=== PATIENT | male | born 1960 | race Caucasian/White ===

== ENCOUNTER 2018-01-17 18:57 | Emergency (ER) | payer SELFPAY ==
[~2018-01-17] VITALS: Ht 167.6 cm; Wt 82.6 kg
[2018-01-17 19:10] VITALS: BP 166/95
--- NOTE | 2018-01-17 19:15 | NUR ---
PT WC'D TO BED 6
--- NOTE | 2018-01-17 19:27 | NUR ---
PT C/O R KNEE PAIN X2 DAYS. PT REPORTS DRAINING OF R KNEE ON WED 01/15/18, BUT STILL REPORTS SWELLING AND PAIN. WAS GIVEN NORCO, CIPRO AND KEFLEX RX. PMH---HTN NKA
--- NOTE | 2018-01-17 19:52 | NUR ---
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
--- NOTE | 2018-01-17 19:55 | NUR ---
XRAY AT BEDSIDE
--- NOTE | 2018-01-17 20:01 | NUR ---
Dr. Velazquez evaluating patient at bedside.
[2018-01-17] MEDS ORDERED: LIDOCAINE/EPI 2% 1:100000 20 ML VIAL INJ ONE ×2 (20:10→20:19)
--- NOTE | 2018-01-17 20:51 | NUR ---
Dr. Velazquez at bedside for procedure.
--- NOTE | 2018-01-17 20:54 | NUR ---
PERFORMS ASPIRATION TO RT KNEE
[2018-01-17] MEDS ORDERED: KETOROLAC 30 MG/ML VIAL IM ONE (21:10)
[2018-01-17 21:30] VITALS: BP 150/82
--- NOTE | 2018-01-17 21:30 | NUR ---
Patient discharged with v/s stable. Written and verbal after care instructions given and explained. Patient alert, oriented and verbalized understanding of instructions. Wheel Chair Assisted with to car. All questions addressed prior to discharge. ID band removed. Patient advised to follow up with PMD. Rx of NAPROSYN 500MG given. Patient educated on indication of medication including possible reaction and side effects. Opportunity to ask questions provided and answered.
== END 2018-01-17 21:30 | disposition home or self-care (01) ==
LOC: MED 18:57
DX: M25.461 Effusion, right knee (principal)
CPT/HCPCS: 20610; 29505; 73562; 99283; J1885; J2001; Q0092; 96372